=== PATIENT | female | born 1950 | race Caucasian/White ===

== ENCOUNTER 2017-12-22 05:18 | Day surgery (SDC) | payer OTHER | END 2017-12-22 09:55 | disposition home or self-care (01) | LOC: AMB-ENDOS 05:18 | DX: D12.5 Benign neoplasm of sigmoid colon (principal) ==

== ENCOUNTER 2018-11-02 05:15 | Day surgery (SDC) | payer OTHER | END 2018-11-02 10:25 | disposition home or self-care (01) | LOC: AMB-ENDOS 05:15 | DX: K57.30 Diverticulosis of large intestine without perforation or abscess without bleeding (principal); K64.1 Second degree hemorrhoids ==